=== PATIENT | female | born 1990 | race Caucasian/White ===

== ENCOUNTER 2017-05-20 19:06 | Emergency (ER) | payer BC ==
[~2017-05-20] VITALS: Ht 154.9 cm; Wt 56.7 kg
[2017-05-20 19:06] VITALS: BP_SYST 146
[2017-05-20] MEDS ORDERED: HYDROcodone/ACETAMIN 7.5-325 MG TAB PO ONE (19:45)
[2017-05-20 20:46] VITALS: BP_SYST 144
== END 2017-05-20 20:46 | disposition home or self-care (01) ==
LOC: SED 19:06
DX: S50.12XA Contusion of left forearm, initial encounter (principal); F41.9 Anxiety disorder, unspecified; F17.200 Nicotine dependence, unspecified, uncomplicated; Z71.6 Tobacco abuse counseling; Z95.0 Presence of cardiac pacemaker; Z86.79 Personal history of other diseases of the circulatory system; W01.198A Fall on same level from slipping, tripping and stumbling with subsequent striking against other object, initial encounter; Y93.E1 Activity, personal bathing and showering; Y92.091 Bathroom in other non-institutional residence as the place of occurrence of the external cause; Y99.8 Other external cause status
CPT/HCPCS: 36415; 73090; 81025; 84484; 93005; 99285